=== PATIENT | female | born 1955 | race Caucasian/White ===

== ENCOUNTER → 2016-11-07 | Outpatient (CLI) | payer OTHER ==
[~2016-11-07] MED LIST: ASPIRIN 325MG325 MG PO; BUSPAR 10MG10 MG PO; CELEXA10 MG PO; LAMICTAL200 MG PO; METHOCARBAMOL750 MG PO; NABUMETONE500 MG PO; PRAVACHOL20 MG PO; PROZAC20 MG PO; SUBOXONE 8 MG-1 EACH SL; TRAZODONE HCL100 MG PO
== END ==
LOC: US 10:22
DX: R22.2 Localized swelling, mass and lump, trunk (principal)
CPT/HCPCS: 76705